=== PATIENT | female | born 1975 | race Caucasian/White ===

== ENCOUNTER → 2019-12-28 | Outpatient (CLI) | payer BC ==
[~2019-12-28] MED LIST: ADAL40KI INJ; CYCL1DRO EACHEYE; DULO30CA2 PO
== END | disposition home or self-care (01) ==
LOC: STAR 08:29
PROVIDERS: ATTEND Obstetrics & Gynecology
DX: Z01.812 Encounter for preprocedural laboratory examination (principal); Z20.828 Contact with and (suspected) exposure to other viral communicable diseases
CPT/HCPCS: 36415; 87635

== ENCOUNTER 2020-01-01 12:25 | Observation (INO) | payer BC ==
[~2020-01-01] VITALS: Ht 170.2 cm; Wt 54.0 kg
[2020-01-01] MEDS ORDERED: CHLORHEXIDINE 15 ML UDC MM STA (12:51)
[2020-01-01] MEDS ORDERED: LACTATED RINGERS 1,000 ML IV SCH ×2 (12:52→20:00)
[2020-01-01] MEDS ORDERED: CHLORHEXIDINE 15 ML UDC ONE (13:00)
[2020-01-01 13:46] LABS: HCG UR SG 1.029 (1.003-1.030)
[2020-01-01] MEDS ORDERED: SILVER NITRATE STICK TP ONE (14:17)
[2020-01-01] MEDS ORDERED: BUPIVACAINE/PF 0.25% ONE (14:17)
[2020-01-01] MEDS ORDERED: EPINEPHRINE 1 MG/ML, 1ML ONE (14:18)
[2020-01-01] MEDS ORDERED: MIDAZOLAM 1 MG/ML, 2ML ONE (14:29)
[2020-01-01] MEDS ORDERED: FENTANYL PF 250 MCG/5ML ONE (14:29)
[2020-01-01] MEDS ORDERED: MEPERIDINE/PF 25MG/0.5ML IVPush PRN (15:00)
[2020-01-01] MEDS ORDERED: FENTANYL PF 100 MCG/2ML IV PRN (15:00)
[2020-01-01] MEDS ORDERED: HYDROmorphone 1 MG/ML, 1ML INJ IVPush PRN (15:00)
[2020-01-01] MEDS ORDERED: hydrALAzine 20 MG/ML, 1ML IV PRN (15:00)
[2020-01-01] MEDS ORDERED: PROMETHAZINE 25 MG/ML, 1ML IVPush PRN (15:00)
[2020-01-01] MEDS ORDERED: DIPHENHYDRAMINE 50 MG/ML, 1ML IVPush PRN (15:00)
[2020-01-01] MEDS ORDERED: HYDROcodone/APAP 7.5-325MG/15ML UDC PO PRN (15:00)
[2020-01-01] MEDS ORDERED: LABETALOL 5MG/ML, 20ML IV PRN (15:00)
[2020-01-01] MEDS ORDERED: HALOPERIDOL 5 MG/ML IV PRN (15:00)
[2020-01-01] MEDS ORDERED: ROCURONIUM 10 MG/ML,10ML ONE (15:19)
[2020-01-01] MEDS ORDERED: LIDOCAINE 4%, 4 ML SYR/CANN TP ONE ×2 (15:19→16:45)
[2020-01-01] MEDS ORDERED: KETOROLAC 30 MG/1 ML ONE (16:35)
[2020-01-01] MEDS ORDERED: DEXAMETHASONE 4 MG/ML, 1ML ONE (16:40)
[2020-01-01] MEDS ORDERED: ONDANSETRON 2MG/ML, 2ML ONE (16:40)
[2020-01-01] MEDS ORDERED: GLYCOPYRROLATE 0.2MG/1ML, 5ML ONE (16:40)
[2020-01-01] MEDS ORDERED: PROPOFOL 10 MG/ML, 20ML ONE (16:40)
[2020-01-01] MEDS ORDERED: NEOSTIGMINE 1 MG/ML, 10ML ONE (16:40)
[2020-01-01] MEDS ORDERED: SUCCINYLCHOLINE 20 MG/ML, 10ML ONE (16:40)
[2020-01-01] MEDS ORDERED: CEFAZOLIN 1,000 MG ONE (16:40)
[2020-01-01] MEDS ORDERED: OXYcodone 5 MG/5 ML ORAL.SOL UDC ONE (17:05)
[2020-01-01] MEDS ORDERED: MEPERIDINE/PF 25MG/ML,1ML ONE (17:06)
[2020-01-01] MEDS ORDERED: HYDROcodone/APAP 7.5-325MG/15ML UDC ONE (17:06)
[2020-01-01] MEDS ORDERED: FENTANYL PF 100 MCG/2ML ONE (17:45)
[2020-01-01] MEDS ORDERED: OXYC5TAB2 PO (19:59)
[2020-01-01] MEDS ORDERED: OXYcodone/APAP 5/325MG TABLET PO PRN (20:00)
[2020-01-01] MEDS ORDERED: KETOROLAC 30 MG/1 ML IV PRN (20:00)
[2020-01-01] MEDS ORDERED: morphine SULFATE 10 MG/ML, 1ML IV PRN (20:00)
[2020-01-01] MEDS ORDERED: LACTATED RINGERS 500 ML IVBOLUS ONE (20:00)
[2020-01-01] MEDS ORDERED: IBUP-1222 PO (20:00)
== END 2020-01-01 20:34 | disposition home or self-care (01) ==
LOC: OUT 12:25 → 4NW 18:16
PROVIDERS: ADMIT Obstetrics & Gynecology; ATTEND Obstetrics & Gynecology
DX: N92.0 Excessive and frequent menstruation with regular cycle (principal); Z30.2 Encounter for sterilization; M06.9 Rheumatoid arthritis, unspecified; E86.9 Volume depletion, unspecified; Z79.899 Other long term (current) drug therapy; Z90.721 Acquired absence of ovaries, unilateral
CPT/HCPCS: 58563; 58661; 81025; 88305; G0378; J0171; J0330; J0690; J1100; J1885; J2175; J2250; J2405; J2704; J2710; J3010; J3490; J7120